=== PATIENT | female | born 1960 | race Caucasian/White ===

== ENCOUNTER 2018-12-19 07:59 | Day surgery (SDC) | payer OTHER ==
[2018-12-18 17:55] VITALS: BMI 22.0
[~2018-12-19] VITALS: Ht 152.4 cm; Wt 56.3 kg
[2018-12-19] VITALS (14 sets, daily range): BP systolic 115–144; BP diastolic 69–88; PULSE 52–76; RESP 11–27; Ht 152.4 cm; Wt 56.3 kg
[~2018-12-19 07:59] MED LIST: CEFAZOLIN 2 GM/50 ML (PMX) 50 ML IVPB SCH
[2018-12-19] MEDS ORDERED: CHOL100062 PO (08:28)
--- NOTE | 2018-12-19 09:54 | HPN ---
Date/Time of Note Date/Time of Note DATE: 12/19/18 TIME: 09:54 Interval H&P Admission Note Pt. seen H&P reviewed: No system changes YANNI MATTA DPM Dec 19, 2018 09:54
[2018-12-19] MEDS ORDERED: POLYMYXIN/BACITRACIN 1L IRRIG ONE (10:02)
[2018-12-19] MEDS ORDERED: LIDOCAINE 2% (MDV) 20 ML INJ ONE (10:02)
[2018-12-19] MEDS ORDERED: BUPIVACAINE 0.25% (MPF) 30 ML INJ ONE (10:02)
[2018-12-19] MEDS ORDERED: FENTAnyl 50 MCG/ML VIAL ONE (10:11)
[2018-12-19] MEDS ORDERED: MIDAZOLAM 1 MG/ML 2 ML INJ ONE (10:11)
[2018-12-19] MEDS ORDERED: CEFAZOLIN 1 GM INJ ONE (10:11)
[2018-12-19] MEDS ORDERED: LIDOCAINE 100 MG SYRINGE ONE (10:11)
[2018-12-19] MEDS ORDERED: PROPOFOL 20 ML ONE (10:11)
--- NOTE | 2018-12-19 10:38 | PREAC ---
Date/Time of Note Date/Time of Note DATE: 12/19/18 TIME: 10:30 Anesthesia Eval and Record Evaluation Time Pre-Procedure Interview DATE: 12/19/18 TIME: 10:30 Age 58 Sex female NPO: 8 hrs Preoperative diagnosis right bunion Planned procedure right bunionectomy Past Medical History Past Medical History: Includes Pulm: COPD, Other (smoker COPD changes in CXR) Surgery & Anesthesia Issues No known issue Meds Anticoagulation: No Beta Ignacio within 24 hr: No Reason Beta Ignacio not given: COPD Reported Medications Cholecalciferol* (Vitamin D3*) 1,000 Unit Tablet, 1000 UNIT PO DAILY, TAB 12/19/18 Current Medications Cefazolin Sodium/ Dextrose 50 ml @ 100 mls/hr PREOP IVPB ; Start 12/19/18 at 06:00; Stop 12/19/18 at 19:00 Meds reviewed: Yes Allergies Coded Allergies: No Known Allergy (Unverified , 12/18/18) Allergies Reviewed: Yes Labs/Studies Labs Reviewed: Reviewed by anesthesiologist test: Negative Pre-procedure Exam Last vitals Vital Signs Date Temp Pulse Resp B/P (MAP) Pulse Ox O2 O2 Flow FiO2 Time Delivery Rate 12/19/18 97.6 64 16 115/69 97 Room Air 08:44 (84) Airway: Adequate mouth opening Mallampati: Mallampati II Teeth: Normal Lung: Normal Heart: Normal ASA Physical Status ASA physical status: 3 Emergency: None Planned Anesthetic General/MAC: MAC Pre-operative Attestations Prior to commencing anesthesia and surgery, the patient was re-evaluated, there was verification of: *The patient's identity *The results of appropriate recent lab work and preoperative vital signs *The above evaluation not changing prior to induction *Anesthetic plan, risk benefits, alternative and complications discussed with patient/family; questions answered; patient/family understands, accepts and wishes to proceed. BECKY MAC MD Dec 19, 2018 10:38
[2018-12-19] MEDS ORDERED: KETOROLAC 15 MG INJ IV PRN (11:00)
[2018-12-19] MEDS ORDERED: ALBUMIN HUMAN 5% 250 ML IV PRN (11:00)
[2018-12-19] MEDS ORDERED: METOCLOPRAMIDE 10 MG INJ IV PRN (11:00)
[2018-12-19] MEDS ORDERED: HYDROmorphONE 1 MG/5 ML IV SYRINGE IV PRN ×2 (11:00)
[2018-12-19] MEDS ORDERED: LABETALOL HCL 20MG INJ IV PRN (11:00)
[2018-12-19] MEDS ORDERED: ONDANSETRON 4 MG INJ IV PRN (11:00)
[2018-12-19] MEDS ORDERED: EPHEDrine 25 MG/5 ML SYG IV PRN (11:00)
[2018-12-19] MEDS ORDERED: hydrALAzine 20 MG INJ IV PRN (11:00)
[2018-12-19] MEDS ORDERED: ATROPINE 1 MG/10 ML SYRINGE IV PRN (11:00)
[2018-12-19] MEDS ORDERED: IPRATROPIUM (NEB) 0.5 MG/2.5 ML AMP HHN PRN (11:00)
[2018-12-19] MEDS ORDERED: FENTAnyl 50 MCG/ML VIAL IV PRN (11:00)
[2018-12-19] MEDS ORDERED: MIDAZOLAM 1 MG/ML 2 ML INJ IV PRN (11:00)
[2018-12-19] MEDS ORDERED: OXYCODONE/ACETAMINOPHEN (5/325) TAB PO PRN (11:00)
[2018-12-19] MEDS ORDERED: DIPHENHYDRAMINE 50 MG INJ IV PRN (11:00)
[2018-12-19] MEDS ORDERED: ALBUTEROL 0.083% (NEB) 2.5 MG/3 ML AMP HHN PRN (11:00)
[2018-12-19] MEDS ORDERED: MEPERIDINE 25 MG INJ IV PRN (11:00)
[2018-12-19] MEDS ORDERED: ONDANSETRON 4 MG INJ ONE (11:29)
[2018-12-19] MEDS ORDERED: DEXAMETHASONE 4 MG/ML 5 ML INJ ONE (11:29)
--- NOTE | 2018-12-19 11:31 | PAC ---
Date/Time of Note Date/Time of Note DATE: 12/19/18 TIME: 12; Post-Anesthesia Notes Post-Anesthesia Note Last documented vital signs Vital Signs Date Temp Pulse Resp B/P (MAP) Pulse Ox O2 O2 Flow FiO2 Time Delivery Rate 12/19/18 97.6 64 16 115/69 97 Room Air 08:44 (84) Activity: WNL Respiratory function: WNL Cardiovascular function: WNL Mental status: Baseline Pain reasonably controlled: Yes Hydration appropriate: Yes Nausea/Vomiting absent: Yes BECKY MAC MD Dec 19, 2018 11:31
--- NOTE | 2018-12-19 11:58 | OPR ---
Date/Time of Note Date/Time of Note DATE: 12/19/18 TIME: 11:58 Operative Report Procedure Date: Dec 19, 2018 Preoperative Diagnosis Right foot bunion deformity Right second hammertoe deformity Right foot pain Postoperative Diagnosis Right foot bunion deformity Right second hammertoe deformity Right foot pain Operation/Procedure Performed Right foot bunionectomy Right second hammertoe correction Surgeon Willis Matta DPM Hand Hose Cutter None Anesthesia Type: general Estimated Blood Loss: minimal Transfusion none Specimen Bone from the right foot Grafts/Implants none Complications none Pt Condition Post Procedure: stable Disposition: PACU Indications This is a pleasant 58-year-old female patient who has been suffering with right foot bunion deformity and second hammertoe deformity for years getting worse over time requiring surgical management. Risks and complications of this type of surgery was discussed with patient in great detail. Risks and complications discussed include, but are not limited to, postoperative infection, postoperative pain, chronic pain and disability, hardware failure, malunion, nonunion, delayed union, failure of surgery to correct the problem, need for additional surgical procedures, toenail changes, onychomycosis, deep venous thrombosis, gait disturbance, problems with shoegear, limitation of activities, limb loss and loss of life. Patient understands the discussion and agrees to the procedure. An informed consent was obtained, signed and placed in the chart. No guarantee or warrantee was given or implied as to the outcome of the procedure either in verbal or written form. Procedure Description The patient was seen in the preoperative unit. The proposed surgery was discussed with patient in great detail. Risks and complications of this type of surgery was discussed with patient in great detail. Opportunity was given to patient to ask questions and all questions were answered. The patient acknowledges understanding of the discussion. An informed consent was then obtained, signed and placed in the chart. Patient was taken to the operating room and was placed on the operating table in the supine position. All bony prominences were padded properly. A timeout was called by the circulating nurse. Everyone in the operating room was agreeable to the timeout. The patient was then placed under general anesthesia by the anesthesiologist. [A pneumatic ankle tourniquet was applied to the right ankle]. The right lower extremity was scrubbed,l prepped, and draped in the usual aseptic manner. An Esmarch bandage was utilized to exsanguinate the right lower extremity and the tourniquet was inflated to 250 mmHg pressure. Procedure #1: Right foot bunionectomy Attention was directed to the right foot. A 6 cm linear incision was made medial and parallel to the extensor hallucis longus tendon using a sharp #10 blade. Bleeders were cauterized as necessary. Sharp and blunt dissection was made of the joint capsule with care being taken to identify and protect vital neurovascular structures. The first metatarsal phalangeal joint capsule was identified and a linear capsulotomy was done using a #15 blade. The joint capsule was then sharply dissected at the periosteal level exposing the first metatarsal phalangeal joint. Large bony prominence was found of the dorsal and medial aspect of the first metatarsal head. A McGlamry elevator was inserted into the joints and adhesions were released. Next, a power saw was used to cut the medial bony prominence. A Chevron type osteotomy was made at the head of the first metatarsal bone. The capital fragment was translated laterally to the desired position and a 0.045 K wire was inserted for temporary fixation. I inserted a guidewire for a 3.0 cannulated and headless screw for fixation using lag technique. The remaining medial shelf of bone was cut using a power saw. All rough edges were smoothed using a power rasp. The deformity was corrected at this time. Excellent range of motion of the first metatarsal phalangeal joint was noted. Copious amounts of sterile normal saline was used to irrigate the wound. Next, the joint capsule was closed using 3-0 Vicryl suture; the subcutaneous layer was closed using 4-0 Vicryl and the skin was closed using 5-0 Monocryl in subcuticular stitch pattern. Steri-Strips were applied. Postoperative injection was given, 15 cc of 0.5% Marcaine plain. Sterile dressing was applied to the right foot. The Esmarch was deflated at this time and prompt hyperemic response was noted to the digits of the right foot. Procedure #2: Right second hammertoe correction Attention was then directed to the right second toe. A 2 cm linear incision was made over the dorsal aspect of the second toe using a #15 blade. Bleeders were cauterized as necessary. Dissection was deepened to the extensor tendon. A #15 blade was used to transect the extensor tendon and the proximal interphalangeal joint was dissected exposing the head of the proximal phalanx and base of the middle phalanx. A power saw was used to cut the head of the proximal phalanx and a ronguer was used to denude the cartilage of the base of the middle phalanx. A 0.062 K-wire was used for fixation. The wound was irrigated with copious amounts of sterile normal saline. The tendon was reapproximated using 4-0 Vicryl suture. The skin was closed using 5-0 Monocryl suture. Steri strips were applied. Right foot was injected with 20 cc of 0.5% Marcaine plain. Sterile dressing was applied to the right foot. The patient tolerated the procedure and anesthesia well. He was transferred to the recovery room with vital signs stable and vascular status intact to the right foot. The patient will be discharged home after postoperative monitoring. Postoperative orders were written. Prescription for pain medication was electronically submitted to patient's pharmacy. Patient is to follow-up in the office in 1 week. Weightbearing status is partial weightbearing right foot with crutches and a postop shoe. WILLIS MATTA DPM Dec 19, 2018 11:58
--- NOTE | 2018-12-19 11:58 | SIPON ---
Date/Time of Note Date/Time of Note DATE: 12/19/18 TIME: 11:56 Operative Report Preoperative Diagnosis Right foot bunion deformity Right second hammertoe deformity Right foot pain Postoperative Diagnosis Right foot bunion deformity Right second hammertoe deformity Right foot pain Operation/Procedure Performed Right foot bunionectomy Right foot second hammertoe deformity Surgeon see signature line dental assistant teacher None Anesthesia: general Estimated blood loss: minimal Transfusion Required none Specimen Bone from the right foot Grafts/Implants none Complications none YANNI MATTA DPM Dec 19, 2018 11:58
== END 2018-12-19 13:43 | disposition home or self-care (01) ==
LOC: SDS 07:59
PROVIDERS: ATTEND Podiatrist Foot & Ankle Surgery
DX: M21.611 Bunion of right foot (principal); M20.41 Other hammer toe(s) (acquired), right foot; J44.9 Chronic obstructive pulmonary disease, unspecified
CPT/HCPCS: 28285; 28296; 73630; 88304; 88311; C1713; J0690; J1100; J1170; J2001; J2250; J2405; J3010; Z7512; Z7610

== ENCOUNTER 2018-12-21 13:54 | Emergency (ER) | payer OTHER ==
[~2018-12-21] VITALS: Ht 160 cm; Wt 56.8 kg
[~2018-12-21 13:54] MED LIST changes: -CEFAZOLIN 2 GM/50 ML (PMX) 50 ML IVPB SCH; +CHOL100062 PO
[2018-12-21 14:00] VITALS: Ht 160 cm; Wt 56.8 kg
[2018-12-21 14:12] VITALS: BP 122/73; PULSE 93; RESP 22
[2018-12-21] MEDS ORDERED: CHOL200073 PO (14:14)
[2018-12-21] MEDS ORDERED: HYDROCODONE/APAP (10/325) TAB PO ONE (15:00)
[2018-12-21] MEDS ORDERED: HYDR-3980 PO (15:48)
--- NOTE | 2018-12-21 15:50 | ERD ---
ER Documentation Chief Complaint Chief Complaint Pt reports bone graft 2 days ago c/o pain HPI This is a 58-year-old female who is here because she has postoperative pain. She had a bone graft done into her right great and second toe for bunion surgery done yesterday she was discharged she did not get her pain medication. She is here because of pain control. She called her doctor told her to come to the ER because he wants us to evaluate the wound to see how it looks. She has no fever no swelling or erythema ROS All systems reviewed and are negative except as per history of present illness. Medications Home Meds Active Scripts Hydrocodone/Acetaminophen ([place] 10-325 Tablet) 1 Each Tablet, 1 TAB PO Q6H PRN for PAIN, #16 TAB Prov:HO PARIKH DO 12/21/18 Reported Medications Cholecalciferol (Vitamin D3) (VITAMIN D-3) 2,000 Unit Capsule, 2000 UNIT PO DAILY, CAP 12/21/18 Discontinued Reported Medications Cholecalciferol* (Vitamin D3*) 1,000 Unit Tablet, 1000 UNIT PO DAILY, TAB 12/19/18 Allergies Allergies: Coded Allergies: No Known Allergy (Unverified , 12/21/18) PMhx/Soc History of Surgery: Yes (VARICOSE VEINS L LEG, BTL, Rt foot bunion deformity 2nd toe deformity 12/19) Anesthesia Reaction: No Hx Neurological Disorder: No Hx Respiratory Disorders: No Hx Cardiac Disorders: No Hx Psychiatric Problems: No Hx Miscellaneous Medical Probl: No Hx Alcohol Use: Yes (SOCIAL) Hx Substance Use: No Hx Tobacco Use: Yes (1-2cig/week ) Smoking Status: Light tobacco smoker FmHx Family History: No coronary disease Physical Exam Vitals Vital Signs Date Temp Pulse Resp B/P (MAP) Pulse Ox O2 O2 Flow FiO2 Time Delivery Rate 12/21/18 99.0 93 22 122/73 98 Room Air 14:12 (89) 12/21/18 99.0 107 24 154/79 96 14:00 (104) Physical Exam Const: No acute distress Head: Atraumatic Eyes: Normal Conjunctiva ENT: Normal External Ears, Nose and Mouth. Neck: Full range of motion. No meningismus. Resp: Clear to auscultation bilaterally Cardio: Regular rate and rhythm, no murmurs Abd: Soft, non tender, non distended. Normal bowel sounds Skin: No petechiae or rashes Back: No midline or flank tenderness Ext: No cyanosis, or edema, the right great toe and second toe have had clean dry and intact wounds no swelling the second toe has a pin placed without erythema or swelling Neur: Awake and alert Psych: Normal Mood and Affect Results 24 hrs Current Medications Medications Dose Sig/Kaur Start Time Status Last (Trade) Ordered Route PRN Stop Time Admin Dose Reason Admin 1 tab ONCE ONCE 12/21/18 DC 12/21/18 Acetaminophen PO 15:00 14:52 / 12/21/18 15:01 Hydrocodone Bitart ([place] (10/325)) Procedures/MDM No signs of infection postop relief there is some pain medication she feels better. Will discharge home with prescription for [place] Departure Diagnosis: Primary Impression: Postoperative pain Condition: Stable Patient Instructions: Wound Care HO PARIKH DO Dec 21, 2018 15:50
== END 2018-12-21 16:04 | disposition home or self-care (01) ==
LOC: E/R 13:54
DX: G89.18 Other acute postprocedural pain (principal)
CPT/HCPCS: Z7502; Z7610; 99283